=== PATIENT | female | born 1990 | race Caucasian/White ===

== ENCOUNTER 2016-09-27 19:05 | Emergency (ER) | payer OTHER ==
[2016-09-27 19:18] VITALS: RESP 18; TEMP 98.5
[2016-09-27 19:49] LABS: RBC URINE 12 /hpf (0-3); URINE BACTERIA OCC (<OCC); URINE BILIRUBIN NEGATIVE (NEGATIVE); URINE BLOOD 2+ (NEGATIVE); URINE COLOR Yellow (YELLOW); URINE GLUCOSE (UA) NORMAL (Normal); URINE KETONE NEGATIVE (NEGATIVE); URINE LEUKOCYTE ESTERASE 2+ Leu/uL (Negative); URINE PROTEIN NEGATIVE (NEGATIVE); URINE UROBILINOGEN NORMAL mg/dL (0.2-1.0); WBC URINE 16 /hpf (0-5)
[2016-09-27] MEDS ORDERED: Sodium Chloride 0.9% 1,000 ML IV ONE (20:18)
[2016-09-27 21:02] LABS: BASO # 0.1 K/uL (0.0-0.2); BASO % 1.3 % (0.0-2.0); EOS # 0.8 K/uL (0.0-0.7); EOS % 9.1 % (0.0-4.0); HEMATOCRIT 35.5 % (34.0-47.0); LYMPH % 46.2 % (20.0-40.0); MEAN CELL VOLUME 89.3 fL (81.0-99.0); MEAN CORPUSCULAR HEMOGLOBIN 30.4 pg (27.0-31.0); MEAN PLATELET VOLUME 7.3 fL (7.2-11.7); MONO # 0.6 K/uL (0.0-0.8); MONO % 7.1 % (0.0-10.0); NRBC % 0.1 % (0.0-2.0); RED CELL DISTRIBUTION WIDTH 13.6 % (11.5-14.5); WHITE BLOOD COUNT 8.8 K/uL (4.8-10.8)
[2016-09-27 21:14] LABS: CHLORIDE 102 mmol/L (98-107)
[2016-09-27 21:16] LABS: POTASSIUM 4.1 mmol/L (3.6-5.2); SODIUM 138 mmol/L (132-148)
[2016-09-27 21:18] LABS: ALB/GLOB RATIO 1.1 (1.0-2.1); ALKALINE PHOSPHATASE 67 U/L (38-126); AST/SGOT 27 U/L (14-36); BILIRUBIN,TOTAL 0.4 mg/dL (0.2-1.3); BLOOD UREA NITROGEN 11 mg/dL (7-17); CARBON DIOXIDE 25 mmol/L (22-30); GFR AFRICAN-AMERICAN > 60; TOTAL PROTEIN 7.2 g/dL (6.3-8.3)
[2016-09-27 21:19] LABS: ALT/SGPT 30 U/L (9-52); GLUCOSE,RANDOM 79 mg/dL (65-105)
[2016-09-27] MEDS ORDERED: Tmp-Smz 800 mg-160 mg DS Tab PO STA (21:24)
[2016-09-27] MEDS ORDERED: Tmp-Smz 800 mg-160 mg DS Tab ONE (21:27)
--- NOTE | 2016-09-27 21:58 | C.PDOC ---
Time Seen by Provider: 09/27/16 19:55 Chief Complaint (Nursing): Female Genitourinary History Per: Patient Onset/Duration Of Symptoms: Days (3) Current Symptoms Are (Timing): Still Present Severity: Moderate Location Of Pain/Discomfort: Suprapubic Radiation Of Pain To:: Back Quality Of Discomfort: Burning Associated Symptoms: Urinary Symptoms Exacerbating Factors: None Alleviating Factors: None Additional History Per: Prior Records Abnormal Vaginal Bleeding: No Past Medical History Reviewed: Historical Data, Nursing Documentation, Vital Signs Vital Signs: Last Vital Signs Temp 98.5 F 09/27/16 19:14 Pulse 99 H 09/27/16 19:14 Resp 18 09/27/16 19:14 BP 94/52 L 09/27/16 19:14 Pulse Ox 100 09/27/16 19:14 - Medical History PMH: No Chronic Diseases Surgical History: Cholecystectomy Family History: States: Unknown Family Hx - Social History Hx Tobacco Use: No Hx Alcohol Use: No Hx Substance Use: No - Immunization History Hx Tetanus Toxoid Vaccination: No Hx Influenza Vaccination: No Hx Pneumococcal Vaccination: No Review Of Systems Except As Marked, All Systems Reviewed And Found Negative. Constitutional: Negative for: Weakness Cardiovascular: Negative for: Chest Pain Respiratory: Negative for: Shortness of Breath Gastrointestinal: Negative for: Vomiting, Diarrhea Genitourinary: Positive for: Dysuria. Negative for: Vaginal Discharge, Vaginal Bleeding Musculoskeletal: Positive for: Back Pain. Negative for: Neck Pain Skin: Negative for: Rash Neurological: Negative for: Weakness, Numbness, Seizures, Altered Mental Status Physical Exam - Physical Exam Appears: Non-toxic, No Acute Distress Skin: Normal Color, Warm, Dry, No Rash Head: Atraumatic, Normacephalic Eye(s): bilateral: Normal Inspection, PERRL, EOMI Oral Mucosa: Moist Neck: Normal ROM, Supple Cardiovascular: Rhythm Regular Respiratory: Normal Breath Sounds, No Accessory Muscle Use Gastrointestinal/Abdominal: Soft, Tenderness (mild suprapubic), No Guarding, No Rebound Extremity: Normal ROM Neurological/Psych: Oriented x3, Normal Motor, Normal Sensation ED Course And Treatment - Laboratory Results Result Diagrams: 09/27/16 20:56 09/27/16 20:56 Interpretation Of Abnormal: Probable UTI, urine C&S sent. Urine POC: Negative O2 Sat by Pulse Oximetry: 100 Pulse Ox Interpretation: Normal Progress - Interventions Interventions:: Observation, Intravenous fluid - Medications Administered Intravenous: NSAID - Data Reviewed Data Reviewed: Lab, Old records - Patient Status Patient status: Mostly improved - Continuity of Care Discussed patient case with:: Patient, Family-HIPPA compliant, ED Nurse - Patient Plan Patient Plan: Discharge, F/U with PCP, Continue present meds Disposition Counseled Patient/Family Regarding: Studies Performed, Diagnosis, Need For Followup, Rx Given - Disposition Referrals: Ramón Freitas MD [Staff Provider] - Nara Liao MD [Staff Provider] - Disposition: HOME/ ROUTINE Disposition Time: 21:58 Condition: IMPROVED Additional Instructions: Drink plenty of fluids. Follow up with your doctor this week. Follow up with a Urologist for further evaluation and treatment. Return to the ER if you develop fever, vomiting, worsening of symptoms or if you have any other concerns. Prescriptions: Ibuprofen [Motrin Tab] 400 mg PO TID PRN #30 tab PRN Reason: Pain, Moderate (4-7) Sulfamethoxazole/Trimethoprim [Bactrim DS 800 mg-160 mg] 1 tab PO BID #14 tab Instructions: Urinary Tract Infection in Women (ED) Forms: [employer] (Pashto) Print Language: THAI - Clinical Impression Clinical Impression: Urinary tract infection
[2016-09-28 00:24] VITALS: BP 96/52; PULSE 94; O2SAT 98
== END 2016-09-27 23:15 | disposition home or self-care (01) ==
LOC: C.ER 19:05
DX: N39.0 Urinary tract infection, site not specified (principal)
CPT/HCPCS: 80053; 81001; 84703; 85025; 87086; 87181; 96374; 99285; J1885; J7040

== ENCOUNTER 2017-01-26 01:43 | Emergency (ER) | payer OTHER ==
[2017-01-26 01:54] VITALS: BP 137/87; PULSE 79; RESP 18; TEMP 98.6; O2SAT 100
--- NOTE | 2017-01-26 02:10 | C.PDOC ---
History Of Present Illness 26 year old female presents to the ER with a complaint of right upper gum pain at the area where she had a root canal 6 days ago. Denies trauma, fever, facial swelling, headache, or dizziness. Time Seen by Provider: 01/26/17 01:56 Chief Complaint (Nursing): Dental Pain History Per: Patient History/Exam Limitations: no limitations Onset/Duration Of Symptoms: Days Current Symptoms Are (Timing): Still Present Recent travel outside of the [place]: No Past Medical History Reviewed: Historical Data, Nursing Documentation, Vital Signs Vital Signs: Last Vital Signs Temp 98.6 F 01/26/17 01:50 Pulse 79 01/26/17 01:50 Resp 18 01/26/17 01:50 BP 137/87 01/26/17 01:50 Pulse Ox 100 01/26/17 03:34 - Medical History PMH: No Chronic Diseases Surgical History: Cholecystectomy Family History: States: Unknown Family Hx - Social History Hx Tobacco Use: No Hx Alcohol Use: No Hx Substance Use: No - Immunization History Hx Tetanus Toxoid Vaccination: No Hx Influenza Vaccination: No Hx Pneumococcal Vaccination: No Review Of Systems Constitutional: Negative for: Fever ENT: Positive for: Mouth Pain. Negative for: Mouth Swelling Musculoskeletal: Negative for: Other (Facial swelling) Neurological: Negative for: Headache, Dizziness Physical Exam - Physical Exam Appears: Non-toxic, No Acute Distress Skin: Normal Color, Warm, Dry Head: Atraumatic, Normacephalic, No Swelling (Facial swelling) Eye(s): bilateral: Normal Inspection Ear(s): Bilateral: Normal Oral Mucosa: Moist Teeth: Other (Visualized white fillings to right upper posterior molars) Gingiva: No Erythema, No Swelling, Tender (To palpation of right upper posterior gum), No Other (Mass) Throat: Normal, No Erythema, No Exudate Neck: Normal, Supple Neurological/Psych: Oriented x3, Normal Speech ED Course And Treatment O2 Sat by Pulse Oximetry: 100 (Room air) Pulse Ox Interpretation: Normal Progress Note: Benadryl, toradol, and viscous lidocaine administered. Patient reports improvement of pain; will discharge home with instructions to follow up with dentist. Disposition Counseled Patient/Family Regarding: Diagnosis, Need For Followup, Rx Given - Disposition Referrals: Dental office, dentist [Other] Disposition: HOME/ ROUTINE Disposition Time: 02:06 Condition: STABLE Additional Instructions: Follow up with Dentist in morning Return to ER if worse Prescriptions: Ibuprofen [Motrin] 600 mg PO Q6H #20 tab Instructions: Toothache (ED) Forms: [employer] (Cuban) - Clinical Impression Clinical Impression: Pain, dental - PA / [employer] / Resident Statement MD/DO has reviewed & agrees with the documentation as recorded. - Scribe Statement The provider has reviewed the documentation as recorded by the Scribe Naveed Lux All medical record entries made by the Eleazaribjose angel were at my direction and personally dictated by me. I have reviewed the chart and agree that the record accurately reflects my personal performance of the history, physical exam, medical decision making, and the department course for this patient. I have also personally directed, reviewed, and agree with the discharge instructions and disposition.
== END 2017-01-26 02:55 | disposition home or self-care (01) ==
LOC: C.ER 01:43
DX: K08.89 Other specified disorders of teeth and supporting structures (principal)
CPT/HCPCS: 96372; 99283; J1885